=== PATIENT | male | born 1955 | race Caucasian/White ===

== ENCOUNTER → 2018-07-19 12:07 | Outpatient (CLI) | payer BC, SELFPAY ==
--- NOTE | 2018-07-19 | DI.US.S_ITS ---
PROCEDURE: US PERIPH VENOUS LOW EXTREM LT INDICATIONS: LEFT LEG PAIN TECHNIQUE: Real-time imaging, as well as color and pulse Doppler interrogation, were performed of the lower extremity deep veins from the inguinal ligament to the popliteal fossa. COMPARISON: None. FINDINGS: The deep veins are normally compressible, and free of intraluminal thrombus. Color and pulse Doppler demonstrate normal phasic intraluminal flow. There is normal augmentation response to distal compression maneuver. IMPRESSION: No DVT found. Dictated by: Alexander Diego M.D. on 07/19/2018 at 13:13 Approved by: Alexander Diego M.D. on 07/19/2018 at 13:14
--- NOTE | 2018-07-19 | DI.RAD.S_ITS ---
PROCEDURE: XR TIBIA FIBULA RT 2V INDICATIONS: LEG AND ANKLE PAIN AFTER FALL TECHNIQUE: 2 views of the tibia and fibula were acquired. COMPARISON: [facility], CR, XR ANKLE LT MIN 3V, 07/19/2018, 12:33. FINDINGS: Bones: No acute appearing fractures or dislocations but there has been a tibial plateau fracture fixation and now is made of a healed minimally displaced distal left fibular metadiaphyseal junction fracture.. No suspicious bony lesions. Soft tissues: No suspicious soft tissue calcifications or masses. IMPRESSION: Tibial plateau fracture fixation establishes normal alignment, chronicity of prior trauma is uncertain. Note is made again of a diagonal fracture through the distal fibular metadiaphyseal junction but this appears healed. It is only slightly offset. Dictated by: Alexander Diego M.D. on 07/19/2018 at 13:14 Approved by: Alexander Diego M.D. on 07/19/2018 at 13:15
--- NOTE | 2018-07-19 | DI.RAD.S_ITS ---
PROCEDURE: XR ANKLE LT MIN 3V INDICATIONS: LEG AND ANKLE PAIN AFTER FALL TECHNIQUE: 3 views of the ankle were acquired. COMPARISON: None. FINDINGS: Bones: No acute fractures or dislocations but there is a healed fracture that is diagonal and minimally offset at the distal fibular metadiaphyseal junction. Ankle mortise is normally aligned. No suspicious bony lesions. Soft tissues: No tibiotalar joint effusion. Achilles tendon appears normal. IMPRESSION: Distal fibular healed fracture as discussed, chronic in appearance. Dictated by: Alexander Diego M.D. on 07/19/2018 at 13:15 Approved by: Alexander Diego M.D. on 07/19/2018 at 13:17
== END ==
PROVIDERS: PCP Nurse Practitioner Family; Visit Provider Nurse Practitioner Family
DX: M79.605 Pain in left leg (principal); M25.572 Pain in left ankle and joints of left foot; S82.141S Displaced bicondylar fracture of right tibia, sequela; Z86.718 Personal history of other venous thrombosis and embolism
CPT/HCPCS: 73590; 73610; 93971

== ENCOUNTER → 2019-06-05 09:44 | Outpatient (CLI) | payer BC, SELFPAY ==
[2019-06-05 10:20] LABS: Influenza A - CEPHEID Flu A POSITIVE (NEGATIVE); Influenza B - CEPHEID Flu B NEGATIVE (NEGATIVE)
== END ==
PROVIDERS: PCP Nurse Practitioner Family; Visit Provider Physician Assistant
DX: R68.89 Other general symptoms and signs (principal)
CPT/HCPCS: 87502

== ENCOUNTER → 2020-07-27 09:11 | Outpatient (CLI) | payer OTHER, SELFPAY ==
[2020-07-27] MEDS: COVID-19 VACC, Ad26(JANSSEN)/PF 0.5 ML IM (09:20)
== END ==
PROVIDERS: PCP Nurse Practitioner Family; Visit Provider Internal Medicine
DX: Z23 Encounter for immunization (principal)
CPT/HCPCS: 0031A; 91303